=== PATIENT | female | born 1980 | race Caucasian/White ===

== ENCOUNTER 2023-07-22 16:02 | Emergency (ER) | payer OTHER, SELFPAY ==
[2023-07-22 16:35] VITALS: BP 123/68; PULSE 68; RESP 16; TEMP 36.1; O2SAT 100
[2023-07-22 16:42] VITALS: BP 123/68; PULSE 68; RESP 16; TEMP 36.1; O2SAT 100
--- NOTE | 2023-07-22 16:57 | ED.FEMALEGU ---
HPI - Female Genitourinary General Chief complaint: Urogenital-Female Stated complaint: uti symptoms Source: patient Mode of arrival: ambulatory Limitations: no limitations History of Present Illness HPI Narrative: 43-year-old female presents to [facility] with complaints of urinary urgency, frequency, pain, burning and lower abdominal cramping since this morning. Patient reports that she was fatigued yesterday but reports that she has numerous auto immune disorders. Patient denies history of urinary tract infections. Patient denies vaginal discharge, concern for STDs, back pain, fever, body aches, chills, nausea, vomiting or diarrhea. Patient reports that she is currently on her period. MD elicited complaint: dysuria and UTI Onset (ago): hour(s) (8) Urinary symptoms: Dysuria, Urgency and Frequency Associated symptoms: denies other symptoms Sexual activity: Yes Patient : No Date of Last Menstrual Period: 07/20/23 Related Data Home Medications Medication Instructions Recorded Confirmed escitalopram oxalate 20 mg tablet 20 mg PO DAILY 07/22/23 07/22/23 hydroxychloroquine 200 mg tablet 200 mg PO BID 07/22/23 07/22/23 semaglutide (weight loss) 1.7 1.7 mg subcut WEEKLY 07/22/23 07/22/23 mg/0.75 mL subcutaneous pen injector (Wegovy) topiramate 50 mg tablet 50 mg PO DAILY 07/22/23 07/22/23 Allergies Allergy/AdvReac Type Severity Reaction Status Date / Time No Known Allergies Allergy Verified 07/22/23 16:40 Review of Systems Constitutional: Constitutional: Denies chills and Denies fatigue ENT: Denies dizziness, Denies epistaxis, Denies nasal congestion and Denies sore throat Cardiovascular: Cardiovascular: Denies chest pain Respiratory: Respiratory: Denies cough, Denies dyspnea and Denies wheezing Gastrointestinal: Gastrointestinal: Reports abdominal pain, Denies diarrhea, Denies nausea and Denies vomiting Comments: Lower abdominal cramping Genitourinary: Genitourinary: Denies abnormal vaginal bleeding, Denies hematuria, Reports nocturia, Denies genital lesions, Reports dysuria, Denies pelvic pain, Denies flank pain, Denies urinary incontinence and Denies vaginal discharge Integumentary/Breasts: Skin/Breast: Denies erythema and Denies rash Neurologic: Denies dizziness, Denies syncope and Denies headache(s) PMFSH Past Medical History Medical History (Updated 07/22/23 @ 17:00 by Jamia Martinez APRN) Rheumatoid arthritis Sjogren's disease Comments At time of signature, I agree with nursing past medical, surgical, social and family history. There is no relevant family history pertinent to the presenting complaint. Exam Const: General: healthy appearing and no acute distress Nutritional Appearance: well nourished Orientation/consciousness: patient oriented x3 Limitations: no limitations HENMT: Head: normal to inspection Eyes: Conjunctivae: conjunctivae normal Neck: Neck: normal visual inspection Resp: Effort & Inspection: normal respiratory effort and not labored Auscultation: clear to auscultation bilaterally, no crackles, no rales, no rhonchi and no wheezes Cardio: Rate: regular rate Rhythm: regular rhythm Heart sounds: no murmurs GI: Inspection: non-distended GI Palp: Yes Soft to palpation, No Tenderness to palpation present (GI), No Guarding due to palpation present (GI) and No Rigid due to palpation Skin: General skin exam: normal color Rashes: no rashes Neuro: General: patient oriented x3 Speech: normal speech Gait exam (Neuro): Normal gait present Psych: Affect: normal affect Attitude: cooperative Course Course Level of Care: Express Care Visit Vital Signs Vital signs: Vital Signs Temperature 36.1 C L 07/22/23 16:35 Pulse Rate 68 07/22/23 16:35 Respiratory Rate 16 07/22/23 16:35 Blood Pressure 123/68 07/22/23 16:35 Pulse Oximetry 100 07/22/23 16:35 Oxygen Delivery Room Air 07/22/23 16:35 Temperature 36.1 C L 07/22/23 16:42
== END 2023-07-22 17:02 | disposition home or self-care (01) ==
PROVIDERS: Emergency Provider Nurse Practitioner Family; PCP Internal Medicine
DX: N39.0 Urinary tract infection, site not specified (principal); B96.1 Klebsiella pneumoniae [K. pneumoniae] as the cause of diseases classified elsewhere; M06.9 Rheumatoid arthritis, unspecified; M35.00 Sjogren syndrome, unspecified
CPT/HCPCS: 81003; 87077; 87086; 87186; 99203; G0463